=== PATIENT | male | born 1935 | race Hispanic/Latino ===

== ENCOUNTER 2023-03-19 07:01 | Day surgery (SDC) | payer OTHER, MEDICARE ==
[2023-03-13 12:10] VITALS: BP 161/69
[2023-03-13 12:19] LABS: BASOPHILS % (AUTO) 0.6 % (0.0-5.0); EOSINOPHILS % (AUTO) 5.2 % (0.0-8.0); HEMATOCRIT 40.7 % (42-54); LYMPHOCYTES % (AUTO) 30.5 % (21.0-51.0); MEAN CORPUSCULAR HEMOGLOBIN 28.4 pg (27.0-33.0); MEAN CORPUSCULAR HGB CONC 32.2 g/dL (32.0-36.0); MEAN CORPUSCULAR VOLUME 88.3 fL (79-99); NEUTROPHILS % (AUTO) 55.4 % (40.0-77.0); PLATELET COUNT (AUTO) 211 K/uL (130-400); RED BLOOD CELL COUNT(AUTO) 4.61 MIL/uL (4.50-6.20); RED CELL DISTRIBUTION WIDTH 14.6 % (11.0-15.5); WHITE BLOOD COUNT (AUTO) 7.9 K/uL (4.8-10.8)
[2023-03-13 12:33] LABS: INR 0.98 (0.85-1.15); PROTHROMBIN TIME 10.7 SEC (9.6-11.6)
[2023-03-13 12:34] LABS: PARTIAL THROMBOPLASTIN TIME 28.2 SEC (26.3-35.5)
[2023-03-13 12:42] LABS: CREATININE 1.2 mg/dL (0.5-1.5); POTASSIUM 4.4 mmol/L (3.5-5.1)
[2023-03-13 12:45] LABS: APPEARANCE,URINE CLOUDY (CLEAR); BILIRUBIN,URINE NEGATIVE (NEGATIVE); COLOR,URINE LIGHT-YELLOW (YELLOW); GLUCOSE, URINE (UA) NEGATIVE (NEGATIVE); KETONES,URINE NEGATIVE (NEGATIVE); LEUKOCYTE ESTERASE ,URINE 500 Leu/uL (NEGATIVE); NITRATE,URINE NEGATIVE (NEGATIVE); OCCULT BLOOD,URINE SMALL (NEGATIVE); PROTEIN,URINE 30 mg/dL (NEGATIVE); UROBILINOGEN,URINE 0.2 mg/dL (0.2-1.0)
[2023-03-13 13:08] LABS: BACTERIA,URINE FEW /HPF (None Seen); MUCUS,URINE RARE LPF (None Seen); SQUAMOUS EPITHELIAL CELL,UR RARE /HPF (0-2); WBC,URINE TNTC /HPF (0-1)
[~2023-03-19] VITALS: Ht 170.2 cm; Wt 74.8 kg
[2023-03-19] VITALS (12 sets, daily range): BP systolic 121–151; BP diastolic 53–68
[~2023-03-19 07:01] MED LIST: AEC81 PO; ATOR40TA69 PO; LISI20TA24 PO; METF-446 PO; TAMS-1 PO
[2023-03-19] MEDS ORDERED: ZOSYN 3.375GM+NS 50ML 50 ML IVPB ONE (07:38)
[2023-03-19] MEDS ORDERED: 0.9%NACL 1000ML 1,000 ML IV ONE (07:38)
[2023-03-19] MEDS ORDERED: MIDAZOLAM HCL 1 MG/ML 2ML VIAL ONE (08:32)
[2023-03-19] MEDS ORDERED: LIDOCAINE PF 100MG/5ML (2%) SYRINGE 5ML ONE (08:32)
[2023-03-19] MEDS ORDERED: DEXAMETHASONE SOD PHOSPHATE 10MG/ML 1ML VIAL ONE (08:32)
[2023-03-19] MEDS ORDERED: SUCCINYLCHOLINE 200MG/10ML SYR ONE (08:32)
[2023-03-19] MEDS ORDERED: PROPOFOL 10 MG/ML 20ML VIAL IV ONE (08:32)
[2023-03-19] MEDS ORDERED: ONDANSETRON 4MG INJ ONE (08:33)
[2023-03-19] MEDS ORDERED: FENTANYL CITRATE PF 50 MCG/1 ML 2ML VIAL ONE (08:46)
== END 2023-03-19 10:40 | disposition home or self-care (01) ==
LOC: DAH 07:01
PROVIDERS: ATTEND Urology
DX: R97.20 Elevated prostate specific antigen [PSA] (principal); Z20.822 Contact with and (suspected) exposure to COVID-19; N40.1 Benign prostatic hyperplasia with lower urinary tract symptoms; R33.8 Other retention of urine; N42.89 Other specified disorders of prostate; I10 Essential (primary) hypertension; E11.9 Type 2 diabetes mellitus without complications; Z85.22 Personal history of malignant neoplasm of nasal cavities, middle ear, and accessory sinuses; Z79.01 Long term (current) use of anticoagulants; Z79.899 Other long term (current) drug therapy
CPT/HCPCS: 80048; 85025; 85610; 85730; 87077; 87088; 87186; 81001; 71045; 93005; 55700; 82948; 36415; 76872; 76942; A4663 ×2; J3010; J0330; J1100; J7030; J2001; J2250; J2704; J2405; J2543; A4215 ×2; A4649; A4223; A4222; A4221